=== PATIENT | female | born 1950 | race American Indian/Alaskan Native ===

== ENCOUNTER 2017-01-24 10:03 | Outpatient (CLI) | payer BC, MEDICARE ==
--- NOTE | 2017-01-24 10:38 | XRay Report ---
CHEST 2 VIEWS INDICATION: Cough. COMPARISON: None similar. FINDINGS: PA and lateral chest radiographs demonstrate normal cardiomediastinal silhouette. Clear lungs. Multilevel thoracic spondylosis. Possible osteopenia. CONCLUSION: No acute disease in the chest. Thank you for the opportunity to participate in this patient's care.
== END 2017-01-24 10:04 | disposition home or self-care (01) ==
LOC: XRAY 10:03
PROVIDERS: ATTEND Internal Medicine
DX: R05 Cough (principal); M47.894 Other spondylosis, thoracic region
CPT/HCPCS: 71020

== ENCOUNTER 2017-12-22 21:26 | Emergency (ER) | payer BC, MEDICARE ==
[2017-12-22 21:33] VITALS: BP 194/124
[2017-12-22] MEDS ORDERED: TYLENOL ONE (21:58)
[2017-12-22] MEDS ORDERED: APRESOLINE ONE (22:02)
[2017-12-22] MEDS ORDERED: TYLENOL PO ONE (22:09)
[2017-12-22] MEDS ORDERED: APRESOLINE PO ONE (22:10)
--- NOTE | 2017-12-23 01:04 | Emergency Department Report ---
ED ENT HPI - General Chief complaint: Dental/Oral Stated complaint: TOOTHACHE Time Seen by Provider: 12/23/17 00:46 Source: patient Mode of arrival: Ambulatory Limitations: No Limitations - Related Data Previous Rx's Medication Instructions Recorded Last Taken Type Amoxicillin 500 mg PO Q8H #30 capsule 12/23/17 Unknown Rx Allergies Allergy/AdvReac Type Severity Reaction Status Date / Time codeine Allergy Itching Verified 12/22/17 22:01 ED Dental HPI - General Chief complaint: Dental/Oral Stated complaint: TOOTHACHE Time Seen by Provider: 12/23/17 00:46 Source: patient Mode of arrival: Ambulatory Limitations: No Limitations - Related Data Previous Rx's Medication Instructions Recorded Last Taken Type Amoxicillin 500 mg PO Q8H #30 capsule 12/23/17 Unknown Rx Allergies Allergy/AdvReac Type Severity Reaction Status Date / Time codeine Allergy Itching Verified 12/22/17 22:01 ED Review of Systems ROS: Stated complaint: TOOTHACHE Other details as noted in HPI ED Past Medical Hx - Past Medical History Previous Medical History?: Yes Hx Hypertension: Yes Hx Asthma: Yes - Surgical History Past Surgical History?: Yes Hx Appendectomy: Yes - Social History Smoking Status: Current Some Day Smoker - Medications Home Medications: Home Medications Medication Instructions Recorded Confirmed Last Taken Type Amoxicillin 500 mg PO Q8H #30 capsule 12/23/17 Unknown Rx ED Physical Exam - General Limitations: No Limitations ED Course Vital Signs 12/22/17 12/22/17 12/22/17 21:26 21:46 22:16 Temperature 99.4 F 99.4 F Pulse Rate 112 H 112 H 104 H Respiratory 18 20 20 Rate Blood Pressure 194/124 194/124 194/124 O2 Sat by Pulse 99 98 Oximetry Critical care attestation.: If time is entered above; I have spent that time in minutes in the direct care of this critically ill patient, excluding procedure time. ED Disposition Clinical Impression: Abscess, dental, Trench mouth Disposition: DC-01 TO HOME OR SELFCARE Is pt being admited?: No Does the pt Need Aspirin: No Condition: Stable Instructions: Dental Abscess (ED) Additional Instructions: Please complete antibiotics as prescribed. Tylenol or Motrin as needed for pain. Please follow up with a dentist as soon as possible. Prescriptions: Amoxicillin 500 mg PO Q8H #30 capsule Referrals: PRIMARY CARE, [Primary Care Provider] - 3-5 Days Forms: Work/School Release Form(ED)
== END 2017-12-23 01:00 | disposition home or self-care (01) ==
LOC: ED 21:26
DX: K04.7 Periapical abscess without sinus (principal); A69.1 Other Vincent's infections; I10 Essential (primary) hypertension; J45.909 Unspecified asthma, uncomplicated; Z90.49 Acquired absence of other specified parts of digestive tract; Z72.0 Tobacco use; Z88.5 Allergy status to narcotic agent; Z79.899 Other long term (current) drug therapy
CPT/HCPCS: 99282

== ENCOUNTER 2018-01-23 23:22 | Inpatient (IN) | payer BC, MEDICARE ==
[2018-01-24 00:10] LABS: Basophils # (Auto) 0.1 K/mm3 (0.0-0.1); Basophils % (Auto) 1.5 % (0.0-1.8); Eosinophils % (Auto) 0.6 % (0.0-4.3); Hematocrit 40.2 % (30.3-42.9); Hemoglobin 13.8 gm/dl (10.1-14.3); Lymphocytes # (Auto) 1.1 K/mm3 (1.2-5.4); Lymphocytes % (Auto) 12.2 % (13.4-35.0); Mean Corpuscular HGB Conc 34 % (30-34); Mean Corpuscular Hemoglobin 32 pg (28-32); Mean Corpuscular Volume 92 fl (79-97); Monocytes # (Auto) 0.7 K/mm3 (0.0-0.8); Monocytes % (Auto) 7.3 % (0.0-7.3); Platelet Count 212 K/mm3 (140-440); Red Blood Count 4.37 M/mm3 (3.65-5.03); Red Cell Distribution Width 14.3 % (13.2-15.2)
[2018-01-24 00:24] LABS: Albumin 4.4 g/dL (3.9-5); Calcium 9.4 mg/dL (8.4-10.2)
--- NOTE | 2018-01-24 01:57 | Cat Scan Report ---
FINAL REPORT PROCEDURE: CT ABDOMEN PELVIS WO CON TECHNIQUE: Computerized axial tomography of the abdomen and pelvis was performed without intravenous contrast. This study is performed without intravascular contrast material and its sensitivity for abdominal and pelvic pathology, including neoplasms, inflammation, abscess, free fluid, thrombosis, arterial dissection and infarction, is reduced compared with a contrast enhanced study. HISTORY: ABD pain COMPARISON: No prior studies are available for comparison. FINDINGS: Visualized lower thorax: No significant abnormality. Liver: Normal size and attenuation. There is a 15 millimeter cyst in the right lobe of the liver. Spleen: Normal size and attenuation. Gallbladder and biliary system: Normal. Pancreas: Normal. Adrenals: Normal. Kidneys: There is moderate left hydronephrosis and hydroureter. There is an 8 millimeter stone the distal left ureter.. GI tract: There is no bowel obstruction, colitis or enteritis. The appendix is not discretely identified.. Lymph nodes and mesentery: Normal. Vasculature: Normal. Bladder: Normal. Reproductive organs: Uterus is intact. There are uterine fibroids.. Peritoneum: There is no ascites or free air, abscess or adenopathy.. Musculoskeletal structures: No significant abnormality. Other: None. IMPRESSION: There is moderate left hydronephrosis and hydroureter. There is an 8 millimeter stone the distal left ureter.. There is no bowel obstruction, colitis or enteritis. The appendix is not discretely identified.. Uterus is intact. There are uterine fibroids.. There is no ascites or free air, abscess or adenopathy.. .
[2018-01-24] MEDS ORDERED: MORPHINE IV ONE (02:17)
[2018-01-24] MEDS ORDERED: ZOFRAN IV ONE (02:17)
[2018-01-24] MEDS ORDERED: NACL 0.9% 1000 ML 1,000 ML IV ONE (02:17)
--- NOTE | 2018-01-24 02:17 | Emergency Department Report ---
ED Abdominal Pain HPI - General Chief Complaint: Abdominal Pain Stated Complaint: LEFT LOWER ABD PAIN Time Seen by Provider: 01/24/18 02:16 Source: patient Mode of arrival: Ambulatory Limitations: No Limitations - History of Present Illness Initial Comments: This is a 67-year-old female to this provider previously. She endorses a past medical history of asthma, hypertension, surgical history of appendectomy. She presents to the ER with a complaint of nontraumatic left flank pain which radiates down some left lower quadrant. There is some nausea or vomiting. No Fevers or chills, no irritative or obstructive urinary symptoms. MD Complaint: abdominal pain, flank pain Location: L flank Radiation: LLQ Migration to: LLQ Severity: moderate Quality: cramping, aching Consistency: intermittent Improves With: nothing Worsens With: nothing Associated Symptoms: nausea, vomiting. denies: dysuria - Related Data Previous Rx's Medication Instructions Recorded Last Taken Type Amoxicillin 500 mg PO Q8H #30 capsule 12/23/17 Unknown Rx Allergies Allergy/AdvReac Type Severity Reaction Status Date / Time codeine Allergy Itching Verified 12/22/17 22:01 ED Review of Systems ROS: Stated complaint: LEFT LOWER ABD PAIN Other details as noted in HPI Constitutional: malaise. denies: fever Eyes: denies: eye discharge ENT: denies: epistaxis Respiratory: denies: cough Cardiovascular: denies: chest pain Gastrointestinal: nausea, vomiting Genitourinary: denies: dysuria Musculoskeletal: back pain Skin: denies: lesions Neurological: weakness Psychiatric: anxiety ED Past Medical Hx - Past Medical History Previous Medical History?: Yes Hx Hypertension: Yes Hx Asthma: Yes - Surgical History Past Surgical History?: Yes Hx Appendectomy: Yes - Social History Smoking Status: Current Every Day Smoker Substance Use Type: None - Medications Home Medications: Home Medications Medication Instructions Recorded Confirmed Last Taken Type Amoxicillin 500 mg PO Q8H #30 capsule 12/23/17 Unknown Rx ED Physical Exam - General Limitations: No Limitations General appearance: alert, in distress - Head Head exam: Present: atraumatic, normocephalic - Eye Eye exam: Present: normal appearance, EOMI. Absent: nystagmus - ENT ENT exam: Present: normal exam, normal orophraynx, mucous membranes moist, normal external ear exam - Neck Neck exam: Present: normal inspection, full ROM - Respiratory Respiratory exam: Present: normal lung sounds bilaterally. Absent: respiratory distress - Cardiovascular Cardiovascular Exam: Present: normal rhythm, tachycardia, normal heart sounds. Absent: systolic murmur, diastolic murmur, rubs, gallop - GI/Abdominal GI/Abdominal exam: Present: soft. Absent: distended, tenderness, guarding, rebound, rigid, pulsatile mass - Extremities Exam Extremities exam: Present: normal inspection, full ROM, normal capillary refill , other (2+ pulses noted in the bilateral upper, lower extremities. Compartments soft. No long bony tenderness. The pelvis is stable.). Absent: tenderness, pedal edema, joint swelling, calf tenderness - Back Exam Back exam: Present: normal inspection, full ROM, CVA tenderness (L). Absent: tenderness, CVA tenderness (R), paraspinal tenderness, vertebral tenderness - Neurological Exam Neurological exam: Present: alert, oriented X3, CN II-XII intact, other ( Extraocular movements intact. Tongue midline. No facial droop. Facial sensation intact to light touch in the V1, V2, V3 distribution bilaterally. 5 and 5 strength in 4 extremities.. Sensation is intact to light touch in 4 extremities.). Absent: motor sensory deficit - Psychiatric Psychiatric exam: Present: anxious - Skin Skin exam: Present: warm, dry, intact, normal color. Absent: rash ED Course Vital Signs 01/23/18 01/23/18 01/24/18 23:27 23:44 02:32 Temperature 98.6 F Pulse Rate 111 H Respiratory 16 Rate Blood Pressure 174/106 Blood Pressure [Right] O2 Sat by Pulse 100 111 H Oximetry 01/24/18 01/24/18 02:40 02:58 Temperature Pulse Rate 83 Respiratory 16 16 Rate Blood Pressure Blood Pressure 198/109 [Right] O2 Sat by Pulse 98 98 Oximetry - Reevaluation(s) Reevaluation #1: 01/24/18 02:44 Differential diagnosis, including but not limited to: Colitis, diverticulitis, urinary tract infection, renal colic Assessment and plan: 67-year-old female with left flank pain, and renal colic as demonstrated on noncontrast CT scan. She is afebrile with tachycardia most likely secondary to pain and possible mild dehydration. Urinalysis pending at this time, has very mild renal insufficiency. Elevated blood pressure reviewed and appreciated, please reference the [employer] clinical policy on hypertension is not symptomatic. Reevaluation #2: 01/24/18 03:16 Urinalysis suggests bacteriuria. Patient also fairly hypertensive. I have requested that nursing team reconciliation the patient's outpatient antihypertensive medications. Given constellation of bacteriuria, obstructing kidney stone, renal insufficiency, patient will be admitted to the hospital for medical optimization and urgent urologic consultation. Case is presented to the urologist on-call, Dr. Derrek Cowan, who agrees to see the patient in consultation. The Hospital physician is paged to arrange admission. Reevaluation #3: 01/24/18 03:22 Dr. Hernández accepted the patient to the medical service. ED Medical Decision Making - Lab Data Result diagrams: 01/23/18 23:54 01/23/18 23:54 Vital Signs 01/23/18 01/23/18 01/24/18 23:27 23:44 02:32 Temperature 98.6 F Pulse Rate 111 H Respiratory 16 Rate Blood Pressure 174/106 O2 Sat by Pulse 100 111 H Oximetry Lab Results 01/23/18 01/23/18 Range/Units 23:54 23:54 WBC 8.9 (4.5-11.0) K/mm3 RBC 4.37 (3.65-5.03) M/mm3 Hgb 13.8 (10.1-14.3) gm/dl Hct 40.2 (30.3-42.9) % MCV 92 (79-97) fl MCH 32 (28-32) pg MCHC 34 (30-34) % RDW 14.3 (13.2-15.2) % Plt Count 212 (140-440) K/mm3 Lymph % (Auto) 12.2 L (13.4-35.0) % [place] % (Auto) 7.3 (0.0-7.3) % Eos % (Auto) 0.6 (0.0-4.3) % Baso % (Auto) 1.5 (0.0-1.8) % Lymph # 1.1 L (1.2-5.4) K/mm3 [place] # 0.7 (0.0-0.8) K/mm3 Eos # 0.0 (0.0-0.4) K/mm3 Baso # 0.1 (0.0-0.1) K/mm3 Seg Neutrophils % 78.4 H (40.0-70.0) % Seg Neutrophils # 7.0 (1.8-7.7) K/mm3 Sodium 140 (137-145) mmol/L Potassium 3.3 L (3.6-5.0) mmol/L Chloride 96.8 L (98-107) mmol/L Carbon Dioxide 26 (22-30) mmol/L Anion Gap 21 mmol/L BUN 12 (7-17) mg/dL Creatinine 1.4 H (0.7-1.2) mg/dL Estimated GFR 46 ml/min BUN/Creatinine Ratio 9 % Glucose 121 H (65-100) mg/dL Calcium 9.4 (8.4-10.2) mg/dL Total Bilirubin 0.50 (0.1-1.2) mg/dL AST 20 (5-40) units/L ALT 6 L (7-56) units/L Alkaline Phosphatase 74 (35-129) units/L Total Protein 6.9 (6.3-8.2) g/dL Albumin 4.4 (3.9-5) g/dL Albumin/Globulin Ratio 1.8 % - Radiology Data Radiology results: report reviewed, image reviewed Noncontrast CT scan of the abdomen and pelvis shows an obstructing 8 mm stone in the distal left ureter, with moderate left hydronephrosis and hydroureter. No other acute disease is noted.. Multiple other incidental findings noted. Critical care attestation.: If time is entered above; I have spent that time in minutes in the direct care of this critically ill patient, excluding procedure time. ED Disposition Clinical Impression: Obstructive uropathy, JORDIN (acute kidney injury) Disposition: OP ADMIT IP TO THIS HOSP Is pt being admited?: Yes Condition: Good Instructions: Abdominal Pain (ED) Referrals: PRIMARY CARE, [Primary Care Provider] - 3-5 Days
[2018-01-24 02:59] LABS: Bacteria,Urine 1+ /HPF (Negative); Bilirubin,Urine NEG (Negative); Blood,Urine MOD (Negative); Color,Urine Yellow (Yellow); Mucus,Urine FEW /HPF; Urobilinogen,Urine < 2.0 mg/dL (<2.0)
[2018-01-24] MEDS ORDERED: ROCEPHIN/NS 1 GM/50 ML 1 GM/50 ML BAG IV ONE (03:05)
[2018-01-24] MEDS: KCL 10MEQ/100ML 10 MEQ/100 ML BAG IV SCH ×2 (03:07→04:21)
[2018-01-24] MEDS ORDERED: ZOFRAN IV PRN ×2 (04:29→06:31)
[2018-01-24] MEDS ORDERED: MORPHINE IV PRN (04:29)
[2018-01-24] MEDS ORDERED: TYLENOL PO PRN (04:29)
[2018-01-24] MEDS ORDERED: SODIUM CHLORIDE FLUSH SYRINGE 10 ML IV PRN (04:29)
--- NOTE | 2018-01-24 04:32 | History and Physical Report ---
History of Present Illness History of present illness: 67 year old woman with history of hypertension comes to the emergency room complaining of left flank pain since Saturday. She describes a sharp, constant, intensity 8 out of 10, no radiation, Shira identified exacerbating or relieving factor. Admits to nausea, dysuria, frequency Review of systems Constitutional: no weight loss, chills, fever Ears, eyes, nose, mouth and throat: no nasal congestion, no nasal discharge, no sinus pressure, no vision change, no red eye. Neck: No neck pain or rigidity. Cardiovascular: no chest pain, palpitations Respiratory: no cough, shortness of breath Gastrointestinal: no abdominal pain hematochezia Genitourinary : no hematuria Musculoskeletal: no joint swelling or muscle ache Integumentary: no rash, no pruritis Neurological: no parathesias, no numbness, no focal weakness Endocrine: no cold or heat intolerance, no polyuria or polydipsia Hematologic/Lymphatic: no easy bruising, no easy bleeding, no gland swelling Allergic/Immunologic: no urticaria, no angioedema. PAST MEDICAL HISTORY: hypertension PAST SURGICAL HISTORY: Appendix SOCIAL HISTORY: No alcohol, no drugs, +tobacco FAMILY HISTORY: Hypertension Medications and Allergies Allergies Allergy/AdvReac Type Severity Reaction Status Date / Time codeine Allergy Itching Verified 12/22/17 22:01 Home Medications Medication Instructions Recorded Confirmed Last Taken Type Triamter/Hctz 75-50 mg (Nf) 1 tab PO QDAY 01/24/18 01/24/18 1 Day Ago History [Maxzide 75-50 mg] ~01/23/18 Active Meds: Active Medications Potassium Chloride (Kcl 10meq/100ml) 10 meq in 100 mls @ 100 mls/hr IV Q1H CHRIS Stop: 01/24/18 04:59 Last Admin: 01/24/18 04:21 Dose: 100 mls/hr Exam - Physical Exam Narrative exam: Gen. appearance: Patient lying in bed, no apparent distress HEENT: Normocephalic, atraumatic, pupils equally round and reactive to light, extraocular movement intact, and no sclericterus,. No JVD or thyromegaly or nodule,neck supple, no carotid bruit ,mucous membranes moist, no exudate or erythema Heart: S1, S2, regular rate and rhythm Lungs: Clear bilaterally, breathing comfortable Abdomen: Positive bowel sounds, non-tender, nondistended, no organomegaly Extremity: Left CVA tenderness , no edema cyanosis, clubbing Skin: no rash, dry, warm Neuro: Oriented 3, cranial nerves II-12 intact, speech is fluent, motor and sensory intact - Constitutional Vitals: Temp Pulse Resp BP Pulse Ox 98.6 F 83 16 198/109 98 01/23/18 23:27 01/24/18 02:40 01/24/18 03:02 01/24/18 02:40 01/24/18 02:58 Results - Labs CBC & Chem 7: 01/23/18 23:54 01/23/18 23:54 Labs: Abnormal lab results 01/23/18 01/23/18 01/24/18 Range/Units 23:54 23:54 02:45 Lymph % (Auto) 12.2 L (13.4-35.0) % Lymph # 1.1 L (1.2-5.4) K/mm3 Seg Neutrophils % 78.4 H (40.0-70.0) % Potassium 3.3 L (3.6-5.0) mmol/L Chloride 96.8 L (98-107) mmol/L Creatinine 1.4 H (0.7-1.2) mg/dL Glucose 121 H (65-100) mg/dL ALT 6 L (7-56) units/L Urine WBC (Auto) 14.0 H (0.0-6.0) /HPF U Epithel Cells (Auto) 23.0 H (0-13.0) /HPF - Imaging and Cardiology CT scan - abdomen: report reviewed CT scan - pelvis: report reviewed Assessment and Plan Assessment Left hydronephrosis secondary to stone Acute renal failure Kidney stone UTI Hypertension Plan Admit to medicine Start IV fluid, urology consult, IV Rocephin IV hydralazine as needed for blood pressure control, IV morphine DVT prophylaxis
[2018-01-24] MEDS ORDERED: APRESOLINE IV PRN ×2 (05:18→10:38)
[2018-01-24] MEDS ORDERED: NACL 0.45% 1000 ML 1,000 ML IV ONE (05:32)
[2018-01-24] MEDS: NACL 0.45% 1000 ML 1,000 ML IV SCH ×2 (05:42→23:44)
[2018-01-24] MEDS ORDERED: APRESOLINE ONE (05:47)
[2018-01-24] MEDS ORDERED: MORPHINE ONE (06:10)
[2018-01-24] MEDS ORDERED: ZOFRAN ODT PO PRN (06:21)
[2018-01-24] MEDS ORDERED: ZOFRAN ONE ×2 (06:32→12:04)
--- NOTE | 2018-01-24 10:22 | Progress Note ---
Assessment and Plan consult dictated for stenting likely staged procedures poss infection Subjective Date of service: 01/24/18 Principal diagnosis: l ureteral stone Objective - Constitutional Vitals: Vital Signs - 12hr 01/23/18 01/23/18 01/24/18 23:27 23:44 02:32 Temperature 98.6 F Pulse Rate 111 H Respiratory 16 Rate Blood Pressure 174/106 Blood Pressure [Right] O2 Sat by Pulse 100 111 H Oximetry 01/24/18 01/24/18 01/24/18 02:40 02:55 02:58 Temperature Pulse Rate 83 Respiratory 16 16 Rate Blood Pressure 198/109 Blood Pressure 198/109 [Right] O2 Sat by Pulse 98 97 98 Oximetry 01/24/18 01/24/18 01/24/18 03:00 03:02 03:15 Temperature Pulse Rate Respiratory 16 Rate Blood Pressure 205/106 207/104 Blood Pressure [Right] O2 Sat by Pulse 98 99 Oximetry 01/24/18 01/24/18 01/24/18 04:15 05:30 05:50 Temperature Pulse Rate 83 Respiratory Rate Blood Pressure 158/95 176/110 191/97 Blood Pressure [Right] O2 Sat by Pulse 100 98 Oximetry 01/24/18 01/24/18 01/24/18 05:51 06:00 06:14 Temperature 98.4 F Pulse Rate 83 Respiratory 16 20 Rate Blood Pressure 185/104 Blood Pressure 197/91 [Right] O2 Sat by Pulse 100 Oximetry 01/24/18 01/24/18 01/24/18 06:29 06:31 08:03 Temperature 98.5 F Pulse Rate 79 Respiratory 18 Rate Blood Pressure 178/89 163/84 162/82 Blood Pressure [Right] O2 Sat by Pulse 98 Oximetry General appearance: Present: mild distress, severe distress - Respiratory Respiratory effort: normal - Gastrointestinal General gastrointestinal: Present: tender - Labs CBC & Chem 7: 01/23/18 23:54 01/23/18 23:54 Labs: Abnormal lab results 01/23/18 01/23/18 01/24/18 Range/Units 23:54 23:54 02:45 Lymph % (Auto) 12.2 L (13.4-35.0) % Lymph # 1.1 L (1.2-5.4) K/mm3 Seg Neutrophils % 78.4 H (40.0-70.0) % Potassium 3.3 L (3.6-5.0) mmol/L Chloride 96.8 L (98-107) mmol/L Creatinine 1.4 H (0.7-1.2) mg/dL Glucose 121 H (65-100) mg/dL ALT 6 L (7-56) units/L Urine WBC (Auto) 14.0 H (0.0-6.0) /HPF U Epithel Cells (Auto) 23.0 H (0-13.0) /HPF
[2018-01-24] MEDS ORDERED: DILAUDID IV PRN (10:28)
--- NOTE | 2018-01-24 10:31 | Anesthesia Day of Surgery ---
Anesthesia Day of Surgery - Day of Surgery Patient Examined: Yes Patient H&P Reviewed: Yes Patient is NPO: Yes
--- NOTE | 2018-01-24 10:31 | Anesthesia Consultation ---
Anesthesia Consult and Med Hx Date of service: 01/24/18 - Airway Anesthetic Teeth Evaluation: Good ROM Head & Neck: Adequate Mental/Hyoid Distance: Adequate Mallampati Class: Class II Intubation Access Assessment: Probably Good - Pulmonary Exam CTA: Yes - Cardiac Exam Cardiac Exam: RRR - Pre-Operative Health Status ASA Pre-Surgery Classification: ASA3 Proposed Anesthetic Plan: General - Pulmonary Hx Smoking: Yes (< 1 pack per week) Hx Respiratory Symptoms: No COPD: No Home Oxygen Therapy: No - Cardiovascular System Hx Hypertension: Yes Hx Heart Attack/AMI: No Hx Percutaneous Transluminal Coronary Angioplasty (PTCA): No - Central Nervous System Hx Seizures: No CVA: No Hx Back Pain: Yes (2/2 renal stones) - Gastrointestinal Hx Gastroesophageal Reflux Disease: No - Endocrine Hx Renal Disease: Yes (JORDIN, UTI, left hydronephrosis) Hx Liver Disease: No Hx Insulin Dependent Diabetes: No Hx Hyperthyroidism: Yes (resolved 5-6yrs ago.) - Hematic Hx Anemia: No - Additional Comments Anesthesia Medical History Comments: No hx anesthetic complications.
[2018-01-24] MEDS ORDERED: DIPRIVAN 10 MG/ML IV ONE (10:54)
[2018-01-24] MEDS ORDERED: XYLOCAINE MPF 2% ONE (10:54)
[2018-01-24] MEDS ORDERED: SUBLIMAZE ONE (10:54)
[2018-01-24] MEDS ORDERED: VERSED IV NR (11:00)
[2018-01-24] MEDS ORDERED: NACL 0.9% 1000 ML 1,000 ML IV SCH (11:00)
[2018-01-24] MEDS ORDERED: NEO SYNEPHRINE/NS Syringe(OR USE) IV ONE (11:36)
[2018-01-24] MEDS ORDERED: OMNIPAQUE (300 MG) IR ONE ×2 (11:53)
--- NOTE | 2018-01-24 12:23 | Post Operative Note ---
Date of procedure: 01/24/18 Pre-op diagnosis: left ureteral stone Post-op diagnosis: same Findings: same Procedure: left ureteral stone cysto stent Anesthesia: TIMA Surgeon: FATUMA RUBIO Estimated blood loss: none Pathology: none Condition: stable Disposition: PACU
--- NOTE | 2018-01-24 13:09 | Fluoroscopy Report ---
FLUOROSCOPY RETROGRADE UROGRAPHY: HISTORY: Left ureteral stone, flank pain. FINDINGS: Fluoroscopy was provided by radiology during retrograde urography by the urologist. 5 fluoroscopic images were captured. The images demonstrate a filling defect in the distal left ureter at the level of S3 consistent with a stone. There is mild stranding left hydronephrosis. Subsequent images demonstrate placement of a left ureteral stent which adequately drains the left collecting system on the final image. No images of the right collecting system were captured. IMPRESSION: Left ureteral stone. Left ureteral stent placement.
[2018-01-24] MEDS: LOVENOX SUB-Q SCH (13:15)
[2018-01-24] MEDS: ROCEPHIN/NS 1 GM/50 ML 1 GM/50 ML BAG IV SCH (13:16)
--- NOTE | 2018-01-24 13:56 | Post Anesthesia Evaluation ---
- Post Anesthesia Evaluation Patient Participated: Yes Airway Patent: Yes Stable Respiratory Function: Yes Nausea/Vomiting: No Temp > 96.8F: Yes Pain Manageable: Yes Adequeate Hydration: Yes Anesthesia Complications: No
[2018-01-24] MEDS ORDERED: HCTZ PO SCH (14:00)
[2018-01-24] MEDS ORDERED: TRIAMTER PO SCH (14:00)
--- NOTE | 2018-01-24 15:37 | History and Physical Report ---
INDICATIONS: The patient is a 67-year-old woman who is in lots of pain, difficulty voiding, constipation, nausea, vomiting, low-grade fevers, occasional chills, presented to the Emergency Room with severe left flank pain. She had contacted me about 3 o'clock in the morning. She was admitted for hydration and antibiotics. She now presents for stenting. All risks and implications discussed. PAST MEDICAL HISTORY: Hypertension. PAST SURGICAL HISTORY: Appendectomy. There is no history. SOCIAL HISTORY: Negative. FAMILY HISTORY: Negative. ALLERGIES: CODEINE. REVIEW OF SYSTEMS: As mentioned above. PHYSICAL EXAMINATION: GENERAL: She is awake. She is in [id number] distress secondary to pain. She cannot void. She cannot have a bowel movement. ABDOMEN: Soft with moderate to severe left CVA tenderness. IMPRESSION: Left ureteral stone, possible fevers, chills, for stenting. She will go down. Informed consent was obtained. All risks and implications discussed. She will have done this morning. JOB# [id number] DIANA/ANGEL
[2018-01-24] MEDS: MAXZIDE-25 PO SCH (17:10)
--- NOTE | 2018-01-24 18:28 | Operative Report ---
PREOPERATIVE DIAGNOSES: Severe left flank pain, left hydronephrosis, possible early sepsis. POSTOPERATIVE DIAGNOSES: Severe left flank pain, left hydronephrosis, possible early sepsis. PROCEDURE: Cystoscopy, left retrograde, left double-J stent, and collection of urine for culture. SURGEON: Jimenez Cowan MD ANESTHESIA: General. FINDINGS: This is a woman with severe agonizing pain with an 8 mm left distal to mid stone. The stone was at the junction of the vessels. She now presents for treatment. DESCRIPTION OF PROCEDURE: The patient was brought to the operating room and placed on the operating table. Following induction of anesthesia, placed in lithotomy position, prepped and draped in usual sterile fashion. Cystourethroscopy showed slightly small left orifice. Retrograde showed a large stone at the junction mid and lower ureter. A wire coiled in the kidney, open-ended was placed, and there was lots of debris from the left kidney. We decided not to do ureteroscopy or laser as this would require laser and higher pressure. At this point, a double J coiled, lots of debris came from the left kidney. Culture was sent. The patient tolerated the procedure well and brought to recovery room in stable condition. JOB# [id number] DIANA/ANGEL
[2018-01-24] MEDS: SODIUM CHLORIDE FLUSH SYRINGE 10 ML IV SCH (22:19)
[2018-01-25] MEDS: NACL 0.45% 1000 ML 1,000 ML IV SCH (06:15)
[2018-01-25] MEDS: SODIUM CHLORIDE FLUSH SYRINGE 10 ML IV SCH (09:54)
[2018-01-25] MEDS: LOVENOX SUB-Q SCH (09:56)
[2018-01-25] MEDS: ROCEPHIN/NS 1 GM/50 ML 1 GM/50 ML BAG IV SCH (09:57)
[2018-01-25] MEDS: MAXZIDE-25 PO SCH (09:59)
[2018-01-25] MEDS ORDERED: AFLURIA QUAD 2018-2019 SYRINGE IM ONE (12:00)
[2018-01-25 14:55] VITALS: BP 150/86
--- NOTE | 2018-01-25 16:24 | Progress Note ---
Hospitalist Physical - Constitutional Vitals: Temp Pulse Resp BP Pulse Ox 98.0 F 79 18 150/86 99 01/25/18 13:33 01/25/18 13:33 01/25/18 13:33 01/25/18 13:33 01/25/18 13:33 General appearance: Present: mild distress, severe distress Results - Labs CBC & Chem 7: 01/23/18 23:54 01/23/18 23:54 Labs: Laboratory Last Values WBC 8.9 K/mm3 (4.5-11.0) 01/23/18 23:54 RBC 4.37 M/mm3 (3.65-5.03) 01/23/18 23:54 Hgb 13.8 gm/dl (10.1-14.3) 01/23/18 23:54 Hct 40.2 % (30.3-42.9) 01/23/18 23:54 MCV 92 fl (79-97) 01/23/18 23:54 MCH 32 pg (28-32) 01/23/18 23:54 MCHC 34 % (30-34) 01/23/18 23:54 RDW 14.3 % (13.2-15.2) 01/23/18 23:54 Plt Count 212 K/mm3 (140-440) 01/23/18 23:54 Lymph % (Auto) 12.2 % (13.4-35.0) L 01/23/18 23:54 [place] % (Auto) 7.3 % (0.0-7.3) 01/23/18 23:54 Eos % (Auto) 0.6 % (0.0-4.3) 01/23/18 23:54 Baso % (Auto) 1.5 % (0.0-1.8) 01/23/18 23:54 Lymph # 1.1 K/mm3 (1.2-5.4) L 01/23/18 23:54 [place] # 0.7 K/mm3 (0.0-0.8) 01/23/18 23:54 Eos # 0.0 K/mm3 (0.0-0.4) 01/23/18 23:54 Baso # 0.1 K/mm3 (0.0-0.1) 01/23/18 23:54 Seg Neutrophils % 78.4 % (40.0-70.0) H 01/23/18 23:54 Seg Neutrophils # 7.0 K/mm3 (1.8-7.7) 01/23/18 23:54 Sodium 140 mmol/L (137-145) 01/23/18 23:54 Potassium 3.3 mmol/L (3.6-5.0) L 01/23/18 23:54 Chloride 96.8 mmol/L (98-107) L 01/23/18 23:54 Carbon Dioxide 26 mmol/L (22-30) 01/23/18 23:54 Anion Gap 21 mmol/L 01/23/18 23:54 BUN 12 mg/dL (7-17) 01/23/18 23:54 Creatinine 1.4 mg/dL (0.7-1.2) H 01/23/18 23:54 Estimated GFR 46 ml/min 01/23/18 23:54 BUN/Creatinine Ratio 9 % 01/23/18 23:54 Glucose 121 mg/dL (65-100) H 01/23/18 23:54 Calcium 9.4 mg/dL (8.4-10.2) 01/23/18 23:54 Total Bilirubin 0.50 mg/dL (0.1-1.2) 01/23/18 23:54 AST 20 units/L (5-40) 01/23/18 23:54 ALT 6 units/L (7-56) L 01/23/18 23:54 Alkaline Phosphatase 74 units/L (35-129) 01/23/18 23:54 Total Protein 6.9 g/dL (6.3-8.2) 01/23/18 23:54 Albumin 4.4 g/dL (3.9-5) 01/23/18 23:54 Albumin/Globulin Ratio 1.8 % 01/23/18 23:54 Urine Color Yellow (Yellow) 01/24/18 02:45 Urine Turbidity Cloudy (Clear) 01/24/18 02:45 Urine pH 5.0 (5.0-7.0) 01/24/18 02:45 Ur Specific [place] 1.020 (1.003-1.030) 01/24/18 02:45 Urine Protein 30 mg/dl mg/dL (Negative) 01/24/18 02:45 Urine Glucose (UA) Neg mg/dL (Negative) 01/24/18 02:45 Urine Ketones 80 mg/dL (Negative) 01/24/18 02:45 Urine Blood Mod (Negative) 01/24/18 02:45 Urine Nitrite Neg (Negative) 01/24/18 02:45 Urine Bilirubin Neg (Negative) 01/24/18 02:45 Urine Urobilinogen < 2.0 mg/dL (<2.0) 01/24/18 02:45 Ur Leukocyte Esterase Sm (Negative) 01/24/18 02:45 Urine WBC (Auto) 14.0 /HPF (0.0-6.0) H 01/24/18 02:45 Urine RBC (Auto) 16.0 /HPF (0.0-6.0) 01/24/18 02:45 U Epithel Cells (Auto) 23.0 /HPF (0-13.0) H 01/24/18 02:45 Urine Bacteria (Auto) 1+ /HPF (Negative) 01/24/18 02:45 Urine Mucus Few /HPF 01/24/18 02:45
--- NOTE | 2018-01-25 17:13 | Discharge Summary ---
Providers - Providers Date of Admission: 01/24/18 04:30 Attending physician: LUCIE TRAVIS MD 01/24/18 03:05 Consult to Physician [CONS] Urgent Comment: Dr. Miranda spoke with Dr. Cowan @ 0312 Consulting Provider: FATUMA COWAN Physician Instructions: Reason For Exam: obstructing stone Primary care physician: ADMITTING OFFICER Hospitalization Condition: Good Disposition: DC-01 TO HOME OR SELFCARE Time spent for discharge: 33 minutes Core Measure Documentation - Palliative Care Palliative Care/ Comfort Measures: Not Applicable - Core Measures Any of the following diagnoses?: none Exam - Constitutional Vitals: Temp Pulse Resp BP Pulse Ox 98.0 F 79 18 150/86 99 01/25/18 13:33 01/25/18 13:33 01/25/18 13:33 01/25/18 13:33 01/25/18 13:33 General appearance: Present: no acute distress, well-nourished - EENT Eyes: Present: PERRL ENT: hearing intact, clear oral mucosa - Neck Neck: Present: supple, normal ROM - Respiratory Respiratory effort: normal Respiratory: bilateral: CTA - Cardiovascular Heart Sounds: Present: S1 & S2. Absent: rub, click - Extremities Extremities: pulses symmetrical, No edema Peripheral Pulses: within normal limits - Abdominal General gastrointestinal: Present: soft, non-tender, non-distended, normal bowel sounds Female genitourinary: Present: normal - Integumentary Integumentary: Present: clear, warm, dry - Musculoskeletal Musculoskeletal: gait normal, strength equal bilaterally - Psychiatric Psychiatric: appropriate mood/affect, intact judgment & insight - Neurologic Neurologic: CNII-XII intact, moves all extremities Plan Follow up with: PRIMARY CARE, [Primary Care Provider] - 3-5 Days
[2018-01-25 17:56] LABS: BUN/Creatinine Ratio 11; Blood Urea Nitrogen 10 mg/dL (7-17); Calcium 9.1 mg/dL (8.4-10.2); Hemolysis Index 9
== END 2018-01-25 18:35 | disposition home or self-care (01) | DRG 694 ==
LOC: ED 23:22 → 2B-ACE 01-24 04:30
PROVIDERS: ADMIT Internal Medicine; ATTEND Internal Medicine
PROC: BT1F1ZZ Fluoroscopy of Left Kidney, Ureter and Bladder using Low Osmolar Contrast (ICD-10-PCS; principal; 2018-01-24)
PROC: 0T778DZ Dilation of Left Ureter with Intraluminal Device, Via Natural or Artificial Opening Endoscopic (ICD-10-PCS; 2018-01-24)
DX: N13.2 Hydronephrosis with renal and ureteral calculous obstruction (principal); N39.0 Urinary tract infection, site not specified; N17.9 Acute kidney failure, unspecified; F17.200 Nicotine dependence, unspecified, uncomplicated; I10 Essential (primary) hypertension; E05.90 Thyrotoxicosis, unspecified without thyrotoxic crisis or storm; J45.909 Unspecified asthma, uncomplicated; F41.9 Anxiety disorder, unspecified; Z90.49 Acquired absence of other specified parts of digestive tract; Z82.49 Family history of ischemic heart disease and other diseases of the circulatory system; Z88.5 Allergy status to narcotic agent; Z79.899 Other long term (current) drug therapy
CPT/HCPCS: 36415; 74176; 74420; 80048; 80053; 81001; 85025; 87086; 90686; 96361; 96365; 96367; 96375; C1758; C1769; C2617; J0360; J0696; J1650; J2250; J2270; J2370; J2405; J2704; J3010; J3480; J7030; Q9967

== ENCOUNTER 2018-01-30 11:44 | Day surgery (SDC) | payer BC, MEDICARE ==
[2018-01-30] MEDS ORDERED: ANCEF/STERILE WATER 2 GM/20 ML IV NR (13:00)
--- NOTE | 2018-01-30 13:33 | Anesthesia Consultation ---
Anesthesia Consult and Med Hx Date of service: 01/30/18 - Airway Anesthetic Teeth Evaluation: Good ROM Head & Neck: Adequate Mental/Hyoid Distance: Adequate Mallampati Class: Class III Intubation Access Assessment: Probably Good - Pulmonary Exam CTA: Yes - Cardiac Exam Cardiac Exam: RRR - Pre-Operative Health Status ASA Pre-Surgery Classification: ASA2 Proposed Anesthetic Plan: General - Pulmonary Hx Smoking: Yes (< 1 pack per week) Hx Asthma: Yes Hx Respiratory Symptoms: No COPD: No Hx Sleep Apnea: No (KEZIA PRE SCREEN LOW RISK.) - Cardiovascular System Hx Hypertension: Yes Hx Heart Attack/AMI: No Hx Percutaneous Transluminal Coronary Angioplasty (PTCA): No - Central Nervous System Hx Seizures: No CVA: No Hx Back Pain: Yes (DUE TO STONE) - Gastrointestinal Hx Gastroesophageal Reflux Disease: No - Endocrine Hx Liver Disease: No Hx Insulin Dependent Diabetes: No Hx Hyperthyroidism: Yes (resolved 5-6yrs ago.) - Hematic Hx Anemia: No - Other Systems Hx Cancer: No
--- NOTE | 2018-01-30 13:34 | Anesthesia Day of Surgery ---
Anesthesia Day of Surgery - Day of Surgery Patient Examined: Yes Patient H&P Reviewed: Yes Patient is NPO: Yes Beta Blockers: No Cardiac Clearance: No Pulmonary Clearance: No
[2018-01-30] MEDS ORDERED: DILAUDID IV PRN (13:46)
[2018-01-30] MEDS ORDERED: VERSED IV PRN (13:50)
[2018-01-30] MEDS ORDERED: LACTATED RINGERS 1,000 ML IV SCH (14:00)
--- NOTE | 2018-01-30 14:00 | XRay Report ---
AP ABDOMEN: HISTORY: Left kidney stone. The abdominal gas pattern is unremarkable. No masses or organomegaly is identified and there is no gross evidence of free air or fluid. A left ureteral stent appears in good position. An approximate 8mm calcification is identified along the stent near the level of S1 consistent with a ureteral stone. Pelvic phleboliths and a 1 cm calcified uterine fibroid are also noted. IMPRESSION: Left ureteral calculus as described.
[2018-01-30] MEDS ORDERED: XYLOCAINE MPF 2% ONE (15:46)
[2018-01-30] MEDS ORDERED: SUBLIMAZE ONE ×2 (15:47→16:38)
[2018-01-30] MEDS ORDERED: DIPRIVAN 10 MG/ML IV ONE (15:47)
[2018-01-30] MEDS ORDERED: ZOFRAN ONE (16:02)
[2018-01-30] MEDS ORDERED: DECADRON ONE (16:02)
--- NOTE | 2018-01-30 16:52 | Post Operative Note ---
Date of procedure: 01/30/18 Pre-op diagnosis: ureteral stone Post-op diagnosis: same Findings: as above Procedure: ureteral eswl Anesthesia: PRASHANTH Surgeon: FATUMA RUBIO Estimated blood loss: none Pathology: none Condition: stable Disposition: PACU
--- NOTE | 2018-01-30 16:53 | Discharge Summary ---
Short Stay Discharge Plan Activity: other (no straining ) Weight Bearing Status: Full Weight Bearing Diet: regular, low fat, low salt Special Instructions: other (has stent ) Follow up with: KARSON PEÑA MD [Primary Care Provider] - 7 Days FATUMA RUBIO MD [Staff Physician] - 7 Days
[2018-01-30] MEDS ORDERED: NORCO 7.5/325 PO PRN (17:13)
--- NOTE | 2018-01-30 19:16 | Operative Report ---
PREOPERATIVE DIAGNOSIS: Previous sepsis, previous stenting with a left mid ureteral stone. POSTOPERATIVE DIAGNOSIS: Previous sepsis, previous stenting with a left mid ureteral stone. PROCEDURE: Left lithotripsy. SURGEON: Jimenez Cowan MD ANESTHESIA: General. FINDINGS: This is a woman with a stone at the junction of the mid to lower ureter. She now presents for treatment. The stone on the KUB looks in the mid ureters. All the options were discussed. She wanted to try lithotripsy. DESCRIPTION OF PROCEDURE: The patient was brought to lithotripsy unit and placed on the table. Shocks were begun at 1 kV increased to maximum of 10 kV. The patient tolerated the procedure well. There have the stones spread out. We will reevaluate on x-ray. She knows she may need an ureteroscopy, which is a little more invasive. She tolerated the procedure well and brought to recovery in stable condition. JOB# [id number] DIANA/ANGEL
[2018-01-30 20:30] VITALS: BP 180/92
== END 2018-01-30 11:45 | disposition home or self-care (01) ==
LOC: OR 11:44
PROVIDERS: ATTEND Urology
DX: N20.1 Calculus of ureter (principal); N13.9 Obstructive and reflux uropathy, unspecified; I10 Essential (primary) hypertension; J45.909 Unspecified asthma, uncomplicated; F17.210 Nicotine dependence, cigarettes, uncomplicated; M19.90 Unspecified osteoarthritis, unspecified site; E05.90 Thyrotoxicosis, unspecified without thyrotoxic crisis or storm; Z87.442 Personal history of urinary calculi; Z88.5 Allergy status to narcotic agent; Z87.440 Personal history of urinary (tract) infections; Z90.49 Acquired absence of other specified parts of digestive tract; Z79.899 Other long term (current) drug therapy
CPT/HCPCS: 50590; 74018; J0690; J1100; J1170; J2250; J2405; J2704; J3010; J7120